=== PATIENT | female | born 1955 | race Caucasian/White ===

== ENCOUNTER 2023-12-07 08:15 | Day surgery (SDC) | payer OTHER ==
[~2023-12-07 08:15] MED LIST: Propofol 200 MG/20 ML SDV ONE; fentaNYL 50 MCG/ML SDV ONE
[2023-12-07] MEDS ORDERED: Lactated Ringers 1,000 ML IV SCH (09:00)
[2023-12-07] MEDS: Sodium Chloride 0.9% 1,000 ML IV SCH (09:17)
== END 2023-12-07 11:26 | disposition home or self-care (01) ==
LOC: JP.SDS 08:15
PROVIDERS: ATTEND Surgery
DX: K21.9 Gastro-esophageal reflux disease without esophagitis (principal); E11.9 Type 2 diabetes mellitus without complications; K22.89 Other specified disease of esophagus
CPT/HCPCS: 00731; 43239; J2704; J3010; J7030

== ENCOUNTER 2024-10-12 07:21 | Day surgery (SDC) | payer MEDICARE, OTHER ==
[2024-10-12] MEDS: Lactated Ringers 1,000 ML IV SCH (08:32)
== END 2024-10-12 10:45 | disposition home or self-care (01) ==
LOC: JP.SDS 07:21
PROVIDERS: ATTEND Surgery
DX: Z12.11 Encounter for screening for malignant neoplasm of colon (principal); D12.2 Benign neoplasm of ascending colon
CPT/HCPCS: 00811; 45385; 88305; J2704; J3010; J7120